=== PATIENT | female | born 1965 | race Caucasian/White ===

== ENCOUNTER 2016-07-19 13:26 | Observation (INO) | payer OTHER ==
[~2016-07-19] VITALS: Ht 162.6 cm; Wt 112.3 kg
[2016-07-21] MEDS ORDERED: KLONOPIN DPS0.5 MG PO (16:34)
[2016-07-21] MEDS ORDERED: INDERAL-DPS10 MG PO (16:34)
[2016-07-21] MEDS ORDERED: ABILIFY5 MG PO (16:34)
[2016-07-21] MEDS ORDERED: PROTONIX40 MG PO (16:34)
[2016-07-21] MEDS ORDERED: WELLBUTRIN75 MG PO (16:35)
--- NOTE | 2016-07-25 11:55 | HP ---
ADMIT: 07/19/2016 RM/LOC: 524 [facility] MR#: [id number] [facility]#: [id number] 2620 [facility] [address] [place], [place] [address] BAKER ALIYAH POSADAS [address] [place] [address] History and Physical SEX: F AGE: 51 : 1965 DATE OF SERVICE: CHIEF COMPLAINT: Abdominal pain. HISTORY OF PRESENT ILLNESS: The patient is a 51-year-old female, who reports over the last week or so, she has had decreased oral intake, not eating as well, not drinking as well. This got abruptly so and accompanied by midepigastric and then diffuse abdominal pain starting yesterday. No fevers. No chills. Some nausea without emesis. Just overall does not feel well. Has not had pain like this before. No fevers. No chills. No dysuria. No chest pain. No shortness of breath. PAST MEDICAL HISTORY: 1. Anxiety. 2. Bipolar. 3. History of breast cancer. 4. History of gastric bypass in the late 90s. 5. Hypertension. 6. Iron deficiency anemia. 7. Restless legs. 8. B12 deficiency. 9. Fibromyalgia. MEDICATIONS: She is on: 1. Clonazepam. 2. Pantoprazole. 3. Abilify. 4. Propranolol. 5. Bupropion. Please see list for full details. ALLERGIES: MORPHINE, SHE STARTS SEEING THINGS. PAST SURGICAL HISTORY: Cholecystectomy, gastric bypass, tonsillectomy, breast lumpectomy, right ear surgery. SOCIAL HISTORY: She is a smoker. No drugs. Going through a divorce right now. FAMILY HISTORY: She is adopted. Unknown. PHYSICAL EXAMINATION: VITAL SIGNS: Systolic blood pressure 166/90, heart rate 62, respiratory rate 16, temperature 98.8. GENERAL: She is alert and oriented x3. No acute distress. Pleasant as always. She is a little more uncomfortable than usual definitely. HEENT: Normocephalic, atraumatic. Pupils equal, round, and reactive to light and accommodation. Extraocular muscles intact. Dry mucous membranes. NECK: No lymphadenopathy. Soft, supple. Trachea midline. ADMIT: 07/19/2016 RM/LOC: 524 [facility] MR#: [id number] [address] [address] SAMUEL POSADAS ALIYAH A [address] [place] [address] History and Physical SEX: F AGE: 51 : 1965 LUNGS: Clear to auscultation bilaterally. No wheezes, rales, or rhonchi. HEART: Regular rate and rhythm. No murmurs, rubs, or gallops. ABDOMEN: She has some diffuse mild tenderness. No guarding. No rigidity. No masses. Morbid obesity. EXTREMITIES: No cyanosis, clubbing, or edema. MUSCULOSKELETAL: 5/5 strength in all 4 extremities. Repositions herself in bed reasonably well. NEUROLOGICAL: No focal deficits noted. Cranial nerves II through XII are grossly intact. SKIN: No rashes. Dry. LABORATORY AND X-RAY DATA: Glucose 103, creatinine 0.9. AST, ALT, alkaline phosphatase all within normal limits. Sodium 143, potassium 4.1. UA overall is negative. Lipase is normal. CT scan of her abdomen is reviewed and shows nonspecific bowel gas pattern with prominent fluid-filled loops of small bowel. Question mild ileus and a ventral hernia containing fat. Few pulmonary nodules, 1.1 cm. ASSESSMENT: 1. Ileus. 2. Chronic migraines. 3. Morbid obesity. 4. Pulmonary nodules. PLAN: At this point in time, for ileus, we will give her bowel rest, IV fluids, a little bit of pain medication, and then if a little bit better in the morning, consider some mag citrate orally given her degree of constipation on the CT scan. We will just see how she does with clear liquid diet overnight. In regard to her pulmonary nodule, we will get a CT scan to further evaluate 1.1 cm. Given her smoking history, I think she needs further workup at this time. The patient overall is in agreement with the plan. Remigio Moe MD/ rahel JOB #: [id number] CC: Remigio Moe, Attending Physician Remigio Moe, Family Physician
--- NOTE | 2016-07-29 09:35 | DS ---
ADMIT: 07/19/2016 RM/LOC: 524 [facility] MR#: [id number] [address] [id number] [place], [place] [address] ALIYAH POPE [address] [place] [id number] Discharge Summary SEX: F AGE: 51 : 1965 ADMISSION DATE: 07/19/2016 DISCHARGE DATE: 07/20/2016 CONSULTATIONS: None. FINAL DIAGNOSES: 1. Ileus. 2. Morbid obesity. 3. UTI (urinary tract infection). 4. Chronic migraines. 5. Pulmonary nodules on CT scan. REASON FOR ADMISSION: The patient is a 51-year-old female who came in with abdominal pain, overall not feeling well. CT scan showed likely ileus versus early small bowel obstruction. Admitted for stabilization. HOSPITAL COURSE: The patient was admitted. Given some pain medications. Bowel rest. She slowly and steadily improved. Course most consistent with an ileus. She felt safe and stable for discharge on day on discharge. She will have follow up CT scan regarding her pulmonary nodules which are small as an outpatient. Follow up in clinic with me. DISCHARGE MEDICATIONS: Please see discharge MAR which I reviewed. Remigio Moe MD/ alex JOB #: [id number] CC: Remigio Moe MD, Attending Physician Remigio Moe MD, Family Physician
--- NOTE | 2016-07-31 14:39 | ER ---
ADMIT: 07/19/2016 RM/LOC: 524 [facility] [id number] [id number] 2620 [facility] [address] [place], [place] [address] ALIYAH POPE [address] [place] [id number] Emergency Room Report SEX: F AGE: 51 : 1965 DATE: 07/19/2016 ADDENDUM: CHIEF COMPLAINT: Pelvic pain. HISTORY OF PRESENT ILLNESS: This is a 51-year-old female, who has had some lower pelvic pain for the last 24 hours. She said it is getting worse with time. She has not been able to eat or drink anything without causing pain. COURSE IN THE EMERGENCY ROOM: A CBC, CMP, urine, and CT of her abdomen was done. Overall findings, her CT did show small bowel fluid-filled loops. She does have an umbilical hernia but no entrapment of bowel. There is no obvious evidence of obstruction, looks more like an ileus. Her labs: urine showed 6 red blood cells, many bacteria, 70 glucose. CBC is normal except for white count of 4.0. CMP is normal except for glucose of 103, albumin 3.3, GFR of 75. I did speak with Dr. Moe regarding this patient. The patient does not feel comfortable going home because she is still having quite a bit of pain. He is going to admit her observation. CLINICAL IMPRESSION: Ileus. WILTON Dawson / Salvador Martinez MD / rahel JOB #: [id number] CC: Remigio Moe MD, Attending Physician Remigio Moe MD, Family Physician
[2016-10-10] MEDS ORDERED: ABILIFY10 MG PO (16:10)
[2016-10-10] MEDS ORDERED: HYDROCODON-ACE1 EAC4 PO (16:10)
== END 2016-07-20 13:46 | disposition home or self-care (01) ==
LOC: ER 13:26 → 5MS 16:00
PROVIDERS: ADMIT Internal Medicine
DX: K56.7 Ileus, unspecified (principal); I10 Essential (primary) hypertension; F31.9 Bipolar disorder, unspecified; F41.9 Anxiety disorder, unspecified; D50.9 Iron deficiency anemia, unspecified; M79.7 Fibromyalgia; G25.81 Restless legs syndrome; F17.200 Nicotine dependence, unspecified, uncomplicated; Z85.3 Personal history of malignant neoplasm of breast; Z98.84 Bariatric surgery status; E53.8 Deficiency of other specified B group vitamins; R91.8 Other nonspecific abnormal finding of lung field; G43.909 Migraine, unspecified, not intractable, without status migrainosus; Z88.5 Allergy status to narcotic agent; Z90.49 Acquired absence of other specified parts of digestive tract; Z98.890 Other specified postprocedural states